=== PATIENT | male | born 1950 | race Caucasian/White ===

== ENCOUNTER 2022-04-24 22:44 | Emergency (ER) | payer MEDICARE, OTHER ==
[~2022-04-24] VITALS: Ht 182.9 cm; Wt 101.6 kg
[2022-04-25] MEDS ORDERED: LEVOFLOXACIN750 MG PO (01:16)
== END 2022-04-25 01:36 | disposition home or self-care (01) ==
LOC: ED 22:44
DX: J12.1 Respiratory syncytial virus pneumonia (principal); J45.909 Unspecified asthma, uncomplicated; Z88.5 Allergy status to narcotic agent
CPT/HCPCS: 36415; 71045; 80053; 81003; 85025; 96374; 99284-25; A9270; J1885